=== PATIENT | female | born 2000 | race African-American/Black ===

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

== ENCOUNTER → 2020-02-18 | Outpatient (CLI) | payer BC ==
[~2020-02-18] MED LIST: CARAFATE 1 GM TA1 G1 PO; PROTONIX40 M1 PO; TRAMADOL 50 MG50 MG PO; ZOFRAN 4 MG ORAL4 MG PO
== END ==
LOC: BC 10:46 → ULTRA 10:46 → BC 11:49
PROVIDERS: ATTEND Nurse Practitioner
DX: N63.20 Unspecified lump in the left breast, unspecified quadrant (principal)

== ENCOUNTER 2020-03-10 16:21 | Emergency (ER) | payer BC ==
[~2020-03-10] VITALS: Ht 157.5 cm; Wt 53.1 kg
[2020-03-10 19:35] LABS: ABSOLUTE NEUTROPHILS 6.5 thou/uL (1.4-8.2); EOSINOPHILS 4.7 % (0.0-3.0); HEMATOCRIT 35.9 % (37.0-47.0); HEMOGLOBIN 11.6 gm/dL (12.0-15.0); LYMPHOCYTES 18.1 % (24.0-44.0); MCHC 32.2 g/dL (28.0-37.0); MCV 83.9 fL (80.0-100.0); MONOCYTES 10.1 % (1.0-8.0); PLATELET COUNT 311 thou/uL (150-400); POLYS 66.1 % (36.0-66.0); RBC 4.28 mil/uL (4.20-5.00); RDW 15.3 % (10.5-14.5); WBC 9.8 thou/uL (4.0-11.0)
[2020-03-10 19:43] LABS: CALCIUM 9.4 mg/dL (8.5-10.1); CREATININE 0.8 mg/dL (0.6-1.0); POTASSIUM 3.8 mmol/L (3.5-5.1)
[2020-03-10 19:49] LABS: MAGNESIUM 2.1 mg/dL (1.8-2.4); TOTAL BILIRUBIN 0.3 mg/dL (0.2-1.0); TOTAL PROTEIN 7.9 g/dL (6.4-8.2)
[2020-03-10] MEDS ORDERED: BENADRYL25 MG PO (20:28)
[2020-03-10 20:46] VITALS: BP 109/62
== END 2020-03-10 20:47 | disposition home or self-care (01) ==
LOC: ER 16:21
PROVIDERS: Physician Assistant
DX: G24.9 Dystonia, unspecified (principal)

== ENCOUNTER 2020-08-12 15:56 | Emergency (ER) | payer OTHER ==
[~2020-08-12] VITALS: Ht 157.5 cm; Wt 54.4 kg
[~2020-08-12 15:56] MED LIST changes: +BENADRYL25 MG PO
[2020-08-12 16:41] LABS: URINE BILIRUBIN NEGATIVE (Negative); URINE BLOOD 3+ (Negative); URINE CLARITY CLEAR; URINE COLOR YELLOW; URINE GLUCOSE-RANDOM* NEGATIVE (Negative); URINE KETONES NEGATIVE (Negative); URINE LEUKOCYTES-REFLEX TRACE (Negative); URINE NITRITE-REFLEX NEGATIVE (Negative); URINE PROTEIN (DIPSTICK) NEGATIVE (Negative); URINE UROBILINOGEN 0.2 E.U./dl (0.2-1.0)
[2020-08-12 16:57] LABS: BACTERIA-REFLEX 1-9 Few /HPF (None Seen); CASTS None Seen /LPF (None Seen); CRYSTALS None Seen /LPF (None Seen); SQUAMOUS 4-10 Moderate /LPF (0-3); URINE RBC 3-10 Few /HPF (0-2); URINE WBC-REFLEX 0-5 Rare /HPF (0-5)
[2020-08-12] MEDS ORDERED: DIFLUCAN150 M1 PO (17:33)
[2020-08-12 18:31] VITALS: BP 112/68
== END 2020-08-12 18:31 | disposition home or self-care (01) ==
LOC: ER 15:56
PROVIDERS: Nurse Practitioner Family
DX: N93.9 Abnormal uterine and vaginal bleeding, unspecified (principal); B37.3 Candidiasis of vulva and vagina; Z79.899 Other long term (current) drug therapy

== ENCOUNTER 2020-08-17 06:01 | Emergency (ER) | payer OTHER ==
[~2020-08-17] VITALS: Ht 160 cm; Wt 53.5 kg
[~2020-08-17 06:01] MED LIST changes: +DIFLUCAN150 M1 PO
[2020-08-17 06:34] LABS: ABSOLUTE NEUTROPHILS 4.7 thou/uL (1.4-8.2); BASOPHILS 0.8 % (0.0-2.0); EOSINOPHILS 5.6 % (0.0-3.0); HEMATOCRIT 37.6 % (37.0-47.0); HEMOGLOBIN 12.3 gm/dL (12.0-15.0); MCH 27.2 pg (26.0-34.0); MCHC 32.6 g/dL (28.0-37.0); MCV 83.5 fL (80.0-100.0); MONOCYTES 9.9 % (1.0-8.0); PLATELET COUNT 294 thou/uL (150-400); POLYS 59.7 % (36.0-66.0); RDW 14.6 % (10.5-14.5); WBC 7.8 thou/uL (4.0-11.0)
[2020-08-17 06:39] LABS: URINE BILIRUBIN NEGATIVE (Negative); URINE BLOOD NEGATIVE (Negative); URINE CLARITY CLEAR; URINE COLOR YELLOW; URINE GLUCOSE-RANDOM* NEGATIVE (Negative); URINE KETONES NEGATIVE (Negative); URINE LEUKOCYTES-REFLEX NEGATIVE (Negative); URINE NITRITE-REFLEX NEGATIVE (Negative); URINE PROTEIN (DIPSTICK) NEGATIVE (Negative); URINE SPECIFIC GRAVITY 1.025 (1.005-1.035)
[2020-08-17 06:51] LABS: CREATININE 0.7 mg/dL (0.6-1.0); POTASSIUM 3.6 mmol/L (3.5-5.1)
[2020-08-17 06:56] LABS: ALBUMIN 3.8 g/dL (3.4-5.0); TOTAL BILIRUBIN 0.3 mg/dL (0.2-1.0); TOTAL PROTEIN 7.6 g/dL (6.4-8.2)
[2020-08-17] MEDS ORDERED: FLAGYL500 M1 PO (07:13)
[2020-08-17] MEDS ORDERED: LEVSIN0.125 MG PO (08:46)
[2020-08-17 09:04] VITALS: BP 114/62
== END 2020-08-17 09:05 | disposition home or self-care (01) ==
LOC: ER 06:01
PROVIDERS: Emergency Medicine
DX: N76.0 Acute vaginitis (principal); B96.89 Other specified bacterial agents as the cause of diseases classified elsewhere; R10.32 Left lower quadrant pain

== ENCOUNTER 2020-08-25 18:27 | Emergency (ER) | payer OTHER ==
[~2020-08-25] VITALS: Ht 160 cm; Wt 53.5 kg
[~2020-08-25 18:27] MED LIST changes: +FLAGYL500 M1 PO; +LEVSIN0.125 MG PO
[2020-08-25 18:43] LABS: URINE BILIRUBIN NEGATIVE (Negative); URINE BLOOD TRACE (Negative); URINE CLARITY CLEAR; URINE COLOR YELLOW; URINE GLUCOSE-RANDOM* NEGATIVE (Negative); URINE KETONES TRACE (Negative); URINE LEUKOCYTES-REFLEX NEGATIVE (Negative); URINE NITRITE-REFLEX NEGATIVE (Negative); URINE PROTEIN (DIPSTICK) NEGATIVE (Negative); URINE SPECIFIC GRAVITY 1.025 (1.005-1.035); URINE UROBILINOGEN 0.2 E.U./dl (0.2-1.0)
[2020-08-25 20:30] LABS: ABSOLUTE NEUTROPHILS 4.8 thou/uL (1.4-8.2); BASOPHILS 1.3 % (0.0-2.0); EOSINOPHILS 5.6 % (0.0-3.0); HEMATOCRIT 35.6 % (37.0-47.0); HEMOGLOBIN 11.7 gm/dL (12.0-15.0); LYMPHOCYTES 25.5 % (24.0-44.0); MCH 27.6 pg (26.0-34.0); MCHC 32.9 g/dL (28.0-37.0); MCV 83.9 fL (80.0-100.0); MONOCYTES 9.9 % (1.0-8.0); PLATELET COUNT 308 thou/uL (150-400); POLYS 57.7 % (36.0-66.0); RBC 4.24 mil/uL (4.20-5.00); RDW 14.5 % (10.5-14.5); WBC 8.3 thou/uL (4.0-11.0)
[2020-08-25 20:38] LABS: CALCIUM 8.6 mg/dL (8.5-10.1); CREATININE 0.7 mg/dL (0.6-1.0); POTASSIUM 3.4 mmol/L (3.5-5.1)
[2020-08-25 20:44] LABS: ALBUMIN 3.6 g/dL (3.4-5.0); TOTAL BILIRUBIN 0.3 mg/dL (0.2-1.0); TOTAL PROTEIN 7.1 g/dL (6.4-8.2)
[2020-08-25] MEDS ORDERED: DIFLUCAN150 MG PO (21:58)
[2020-08-25] MEDS ORDERED: MIRALAX119 GM PO (21:58)
[2020-08-25 22:23] VITALS: BP 99/57
== END 2020-08-25 22:24 | disposition home or self-care (01) ==
LOC: ER 18:27
PROVIDERS: Physician Assistant
DX: K59.00 Constipation, unspecified (principal); B37.3 Candidiasis of vulva and vagina; Z79.899 Other long term (current) drug therapy